=== PATIENT | female | born 1960 | race Caucasian/White ===

== ENCOUNTER 2025-05-10 12:36 | Inpatient (IN) ==
[2025-05-10 13:01] LABS: Hematocrit (blood only) 38.8 % (37.0-47.0); Hemoglobin 12.9 g/dl (12.0-16.0); Mean Corpuscular Hemoglobin 28.9 pg (25.0-34.0); Mean Corpuscular Volume 86.8 fL (80.0-100.0); Platelet Count 269 K/uL (130-400); RDW Standard Deviation 41.5 fL (36.4-46.3); Red Blood Count 4.47 M/uL (4.20-5.40); White Blood Count 14.46 K/ul (4.8-10.8)
[2025-05-10 13:18] LABS: Alanine Aminotransferase 13.0 U/L (7-52); Albumin Globulin Ratio 1.5 (0.9-2); Alkaline Phosphatase 84.0 U/L (34-104); Anion Gap 11.0 (3-11); Bilirubin,Total 0.7 mg/dl (0.2-1.0); Blood Urea Nitrogen 32.0 mg/dl (6-23); Calcium 10.5 mg/dl (8.6-10.3); Carbon Dioxide 28.0 mmol/L (21-32); Chloride 104.0 mmol/L (98-107); Creatine Kinase 333.0 U/L (26-192); Creatinine Clr Calc Pharmacy 30.4 ml/min; Globulin 3.2 gm/dl (2.5-4.0); Glucose 119.0 mg/dl (70-99(Fasting)); Magnesium 1.8 mg/dl (1.7-2.4); Potassium 3.7 mmol/L (3.5-5.1); Sodium 143.0 mmol/L (136-145); Total Protein 8.0 gm/dl (6.0-8.3)
--- NOTE | 2025-05-10 13:28 | CT Scan Report ---
Clinical History: Confusion. Technique: Axial computed tomography images were obtained of the brain from the vertex to the skull base without intravenous contrast. Findings: There is no sign of intracranial hemorrhage. There is normal fitzgerald-white matter differentiation with no sign of acute or old infarction. No midline shift or other form of herniation is identified. There is no hydrocephalus. No obvious mass lesion is seen on this noncontrast examination. The visualized portions of the orbits and paranasal sinuses appear unremarkable. The mastoid air cells appear clear Impression: Unremarkable noncontrast CT of the brain Electronically signed by Clark Cherry 05-10-2025 13:28 PM
[2025-05-10] MEDS: SODIUM CHLORIDE 0.9% 1,000 ML IV ONE ×2 (13:30→14:32)
[2025-05-10 13:32] LABS: INR 1.0 (0.9-1.1); Partial Thromboplastin Time 24 Seconds (21-31); Prothrombin Time 10.7 Seconds (9.0-12.0)
--- NOTE | 2025-05-10 13:46 | Emergency Department Note ---
Impression & Plan AMS (altered mental status), YELENA (acute kidney injury), Rhabdomyolysis, Elevated CK ED Provider Note HISTORY OF PRESENT ILLNESS: Patient is a 64-year-old female presenting with altered mental status. EMS provides history given the patient is a poor historian. They report that they were called to the patient's residence because family found her sitting in the chair this morning "with a blank look on her face and staring off into space." They state that she was being very repetitive and was covered in vomit and had an episode of incontinence. EMS reports that they were told that the patient may have fallen last night but they are unsure of the events leading up to the fall. Apparently patient's mother went to check on the patient today at around 10 AM and there was no answer. They then went over to check and the patient was found sitting on a chair. Patient is on no anticoagulation or antiplatelet therapies. Given 4 mg zofran with EMS prior to arrival. ROS: as above PHYSICAL EXAM: Constitutional: Patient appears in no acute distress. Covered in vomit. HENT: Head: Normocephalic. Patient is noted to have ecchymosis and swelling to the left periorbital region. Eyes: EOMI, PERRL Mouth/Throat: Mucous membranes moist. Neck: Trachea midline. Neck supple. Cervical collar in place. Cardiovascular: Tachycardic with regular rhythm. No murmurs, rubs or gallops. Intact distal pulses. Pulmonary/Chest: No respiratory distress. Breath sounds clear and equal bilaterally. No wheezes or rales. Abdominal: Abdomen soft, no tenderness, rebound or guarding. Musculoskeletal: No edema, tenderness or deformity noted. Skin: Warm and dry. No rash, erythema, pallor or cyanosis Neurological: Alert to self only. Only intermittently follows commands. Does move all extremities spontaneously. MDM: - Vitals signs showed hypertension and tachycardia. - History obtained via patient. History as above. - Chronic conditions affecting care: HTN; HLD; anxiety - Differential diagnoses include, but are not limited to: CVA; intracranial hemorrhage; ACS; electrolyte abnormality; pneumonia; UTI - Order placed for continuous cardiac monitoring. At this time, monitor showed rate of 86 bpm with normal sinus rhythm, per my interpretation. - External medical records reviewed. - EKG image interpreted by myself showed normal sinus rhythm. Rate tachycardic at 105 bpm. QT 328. No acute ischemic changes. Noted to have some ST depressions in the lateral leads as compared to an EKG from 02/15/2024. - Laboratory workup interpreted by myself showed leukocytosis (WBC 14.46); normal PT/INR; normal procalcitonin; normal lactic acid; stable electrolytes other than hypercalcemia (Ca 10.5); YELENA (Cr 1.72); elevated CK (333) - CT head wo contrast for acute intracranial pathology - CT cervical spine wo contrast negative for acute injury. Noted to have T1 and T3 compression fractures that are read by radiology as likely old. - UA obtained straight cath by nursing staff was negative for UTI. - CXR image reviewed by myself is negative for pneumonia, per my interpretation. - Patient given 2L NS in ER for her rhabdomyolysis. Given 1 g IV Tylenol for her reported back pain. - Unclear etiology for the patient's confusion at this time. Will admit to hospitalist service for further evaluation and management. - Discussion was had with registered nurse hh case manager about patient's case and need for admission - Hospitalist consulted for admission - Patient admitted to [facility] hospitalist service for further evaluation and management. ASSESSMENT AND PLAN: Diagnosis: Altered mental status; rhabdomyolysis; YELENA; elevated CK; leukocytosis Plan: Admit Past Med/Surg History Problem List (Updated 05/10/25 @ 15:26 by Amador Leone MD) Back pain Abdominal pain Vomiting Leukocytosis YELENA (acute kidney injury) Altered mental state Medical History Dyslipidemia Anxiety Hypertension GERD (gastroesophageal reflux disease) Surgical History S/P [id number] Social History Smoking Status: Unknown if ever smoked Preferred Language: [place] Feels Safe at Home: Yes Allergies Allergies Allergy/AdvReac Type Severity Reaction Status Date / Time bee venom protein (honey bee) AdvReac Nausea Verified 02/15/24 12:16 Home Meds Home Medications Medication Instructions Recorded Confirmed baclofen 5 mg tablet 5 mg PO DAILY PRN Pain 02/15/24 05/10/25 ergocalciferol (vitamin D2) 1,250 50,000 unit PO WK 02/15/24 05/10/25 mcg (50,000 unit) capsule famotidine 20 mg tablet 20 mg PO BID 02/15/24 05/10/25 fluticasone propionate 50 0 spray intranasal DAILY 02/15/24 05/10/25 mcg/actuation nasal spray,suspension (Flonase Allergy Relief) hydroxyzine HCl 25 mg tablet 25 mg PO HS PRN .sleep/anx 02/15/24 05/10/25 lisinopril 10 1 tab PO DAILY 02/15/24 05/10/25 mg-hydrochlorothiazide 12.5 mg tablet lovastatin 20 mg tablet 20 mg PO DAILY 02/15/24 05/10/25 multivitamin 1 tab PO DAILY 02/15/24 05/10/25 omeprazole 20 mg capsule,delayed 20 mg PO QAM 02/15/24 05/10/25 release metformin 500 mg tablet 500 mg PO BID 05/10/25 05/10/25 prazosin 1 mg capsule 1 mg PO HS 05/10/25 05/10/25 propranolol 10 mg tablet 10 mg PO DAILY 05/10/25 05/10/25 ropinirole 4 mg tablet 4 mg PO DAILY 05/10/25 05/10/25 sertraline 100 mg tablet 100 mg PO DAILY 05/10/25 05/10/25 Previous Rx's Medication Instructions Recorded ondansetron HCl 4 mg tablet 4 mg PO Q8H PRN nausea and 10/13/24 vomiting #15 tabs Results & Data (ED) Vital Signs Vital Signs - 24 hr 05/10/25 12:51 05/10/25 13:00 05/10/25 13:30 Temperature 37.0 C Temperature Source Oral Pulse Rate 106 H 108 H Pulse Rate from SpO2 Sensor Respiratory Rate 19 Respiratory Effort / Characteristics Non-Labored Respiratory Depth Normal Blood Pressure 160/105 H 166/105 H Blood Pressure Mean 123 122 Pulse Oximetry 97 Oxygen Delivery Method Room Air Sepsis Recent Fever Within 48 Hours No Sepsis New/Unexplained Change in Mental Status Yes Sepsis Action Taken by Nursing Physician Notified 05/10/25 13:33 05/10/25 13:39 05/10/25 13:40 Temperature Temperature Source Pulse Rate 106 H Pulse Rate from SpO2 Sensor 106 H Respiratory Rate 17 Respiratory Effort / Characteristics Respiratory Depth Blood Pressure Blood Pressure Mean Pulse Oximetry 97 97 98 Oxygen Delivery Method Room Air Room Air Sepsis Recent Fever Within 48 Hours Sepsis New/Unexplained Change in Mental Status Sepsis Action Taken by Nursing 05/10/25 13:41 05/10/25 13:45 05/10/25 14:00 Temperature Temperature Source Pulse Rate 106 H Pulse Rate from SpO2 Sensor 106 H Respiratory Rate 15 Respiratory Effort / Characteristics Respiratory Depth Blood Pressure 166/95 H Blood Pressure Mean 114 Pulse Oximetry 98 98 Oxygen Delivery Method Room Air Sepsis Recent Fever Within 48 Hours Sepsis New/Unexplained Change in Mental Status Sepsis Action Taken by Nursing 05/10/25 14:06 05/10/25 14:18 05/10/25 14:27 Temperature Temperature Source Pulse Rate 107 H 100 H 99 H Pulse Rate from SpO2 Sensor 103 H 101 H 98 H Respiratory Rate 20 22 Respiratory Effort / Characteristics Respiratory Depth Blood Pressure Blood Pressure Mean Pulse Oximetry 97 99 100 Oxygen Delivery Method Sepsis Recent Fever Within 48 Hours Sepsis New/Unexplained Change in Mental Status Sepsis Action Taken by Nursing 05/10/25 14:30 05/10/25 14:33 05/10/25 14:42 Temperature Temperature Source Pulse Rate 94 H 86 Pulse Rate from SpO2 Sensor 95 H 86 Respiratory Rate 17 16 Respiratory Effort / Characteristics Respiratory Depth Blood Pressure 152/99 H Blood Pressure Mean 119 Pulse Oximetry 95 99 Oxygen Delivery Method Sepsis Recent Fever Within 48 Hours Sepsis New/Unexplained Change in Mental Status Sepsis Action Taken by Nursing Laboratory Data 05/10/25 12:47 05/10/25 12:47 Lab Results 05/10/25 05/10/25 05/10/25 Range/Units 12:47 12:50 12:54 WBC 14.46 H (4.8-10.8) K/ul RBC 4.47 (4.20-5.40) M/uL Hgb 12.9 (12.0-16.0) g/dl POC Hgb 13.3 (12.0-16.0) g/dl Hct 38.8 (37.0-47.0) % POC Hct 39 (37-47) % MCV 86.8 (80.0-100.0) fL MCH 28.9 (25.0-34.0) pg MCHC 33.2 (32.0-36.0) g/dL RDW Std Deviation 41.5 (36.4-46.3) fL RDW Coeff of Chantal 13.3 (11.5-14.5) % Plt Count 269 (130-400) K/uL MPV 12.4 (9.4-12.4) fL PT 10.7 (9.0-12.0) Seconds INR 1.0 (0.9-1.1) APTT 24 (21-31) Seconds PTT Ratio 0.9 POC Sodium 143 (135-144) mmol/L Sodium 143 (136-145) mmol/L POC Potassium 3.7 (3.3-5.0) mmol/L Potassium 3.7 (3.5-5.1) mmol/L POC Chloride 105 (101-112) mmol/L Chloride 104 (98-107) mmol/L Carbon Dioxide 28 (21-32) mmol/L POC Total CO2 24 (24-31) mmol/L Anion Gap 11 (3-11) POC Anion Gap 18.0 (16-25) mmol/L POC BUN 31 H (7-18) mg/dl BUN 32 H (6-23) mg/dl Creatinine 1.72 H (0.6-1.2) mg/dl POC Creatinine 1.9 H (0.6-1.3) mg/dl Est Cr Clr Drug Dosing 30.4 ml/min eGFR 33.23 BUN/Creatinine Ratio 18.6 (10-20) Glucose 119 H (70-99(Fasting)) mg/dl POC Glucose (other) 119 H (70-99) mg/dl Lactate 1.6 (0.4-2.0) mmol/L Calcium 10.5 H (8.6-10.3) mg/dl POC Ioniz Calcium Jose 1.25 (1.12-1.32) mmol/l Magnesium 1.8 (1.7-2.4) mg/dl Total Bilirubin 0.7 (0.2-1.0) mg/dl AST 26 (13-39) U/L ALT 13 (7-52) U/L Alkaline Phosphatase 84 (34-104) U/L Total Creatine Kinase 333 H (26-192) U/L Total Protein 8.0 (6.0-8.3) gm/dl Albumin 4.8 (3.4-5.0) gm/dl Globulin 3.2 (2.5-4.0) gm/dl Albumin/Globulin Ratio 1.5 (0.9-2) Procalcitonin (0-0.5) ng/ml Urine Color Urine Appearance (Clear) Urine pH (4.5-7.5) Ur Specific Draper (1.000-1.030) Urine Protein (Negative) Urine Glucose (UA) (Negative) Urine Ketones (Negative) Urine Blood (Negative) Urine Nitrite (Negative) Urine Bilirubin (Negative) Urine Urobilinogen (Negative) Ur Leukocyte Esterase (Negative) Urine WBC (Auto) (0-5) /hpf Urine RBC (Auto) (0-2) /hpf U Hyaline Cast (Auto) (0-2) /lpf U Epithel Cells (Auto) (0-2) /hpf Urine Bacteria (Auto) (None Seen) Hyaline Casts (None Presnt) /lpf Granular Casts (None Prsent) /lpf Urine Comment 05/10/25 05/10/25 Range/Units 12:56 13:28 WBC (4.8-10.8) K/ul RBC (4.20-5.40) M/uL Hgb (12.0-16.0) g/dl POC Hgb (12.0-16.0) g/dl Hct (37.0-47.0) % POC Hct (37-47) % MCV (80.0-100.0) fL MCH (25.0-34.0) pg MCHC (32.0-36.0) g/dL RDW Std Deviation (36.4-46.3) fL RDW Coeff of Chantal (11.5-14.5) % Plt Count (130-400) K/uL MPV (9.4-12.4) fL PT (9.0-12.0) Seconds INR (0.9-1.1) APTT (21-31) Seconds PTT Ratio POC Sodium (135-144) mmol/L Sodium (136-145) mmol/L POC Potassium (3.3-5.0) mmol/L Potassium (3.5-5.1) mmol/L POC Chloride (101-112) mmol/L Chloride (98-107) mmol/L Carbon Dioxide (21-32) mmol/L POC Total CO2 (24-31) mmol/L Anion Gap (3-11) POC Anion Gap (16-25) mmol/L POC BUN (7-18) mg/dl BUN (6-23) mg/dl Creatinine (0.6-1.2) mg/dl POC Creatinine (0.6-1.3) mg/dl Est Cr Clr Drug Dosing ml/min eGFR BUN/Creatinine Ratio (10-20) Glucose (70-99(Fasting)) mg/dl POC Glucose (other) (70-99) mg/dl Lactate (0.4-2.0) mmol/L Calcium (8.6-10.3) mg/dl POC Ioniz Calcium Jose (1.12-1.32) mmol/l Magnesium (1.7-2.4) mg/dl Total Bilirubin (0.2-1.0) mg/dl AST (13-39) U/L ALT (7-52) U/L Alkaline Phosphatase (34-104) U/L Total Creatine Kinase (26-192) U/L Total Protein (6.0-8.3) gm/dl Albumin (3.4-5.0) gm/dl Globulin (2.5-4.0) gm/dl Albumin/Globulin Ratio (0.9-2) Procalcitonin < 0.02 (0-0.5) ng/ml Urine Color Yellow Urine Appearance Clear (Clear) Urine pH 5.5 (4.5-7.5) Ur Specific Draper 1.019 (1.000-1.030) Urine Protein 1+ H (Negative) Urine Glucose (UA) Negative (Negative) Urine Ketones 1+ H (Negative) Urine Blood 1+ H (Negative) Urine Nitrite Negative (Negative) Urine Bilirubin Negative (Negative) Urine Urobilinogen Negative (Negative) Ur Leukocyte Esterase Negative (Negative) Urine WBC (Auto) 0-5 (0-5) /hpf Urine RBC (Auto) 0-2 (0-2) /hpf U Hyaline Cast (Auto) >20 H (0-2) /lpf U Epithel Cells (Auto) 6-10 H (0-2) /hpf Urine Bacteria (Auto) None Seen (None Seen) Hyaline Casts Present A (None Presnt) /lpf Granular Casts Present A (None Prsent) /lpf Urine Comment Administered Medications Discontinued Medications Sodium Chloride (Nss) 1,000 mls @ 999 mls/hr IV .Q1H1M ONE Stop: 05/10/25 13:58 Last Admin: 05/10/25 13:30 Dose: 999 mls/hr Documented By: ISAMARK Sodium Chloride (Nss) 1,000 mls @ 999 mls/hr IV .Q1H1M ONE Stop: 05/10/25 14:34 Last Admin: 05/10/25 14:32 Dose: 999 mls/hr Documented By: ISAMARK Acetaminophen (Ofirmev) 1,000 mg in 100 mls @ 400 mls/hr IV NOW STA Stop: 05/10/25 14:06 Last Infusion: 05/10/25 14:32 Dose: Infused Documented By: Admin: 05/10/25 13:55 Dose: 400 mls/hr Documented By: ISAMARK Imaging Data Radiologist's Impression: Cervical Spine CT 05/10/25 12:43 Clinical history: Confusion Technique: Axial computed tomography images were obtained of the cervical spine without intravenous contrast. Sagittal and coronal reconstructions were obtained Findings: No definite cervical spine fracture is identified. There is a mild T1 compression fracture, likely old. There is also a mild T3 compression fracture. No listhesis is seen. No focal osseous lesion is evident. The atlantoaxial articulation appears unremarkable. At C2-3, there is a mild disc bulge. There is no spinal stenosis. The neural foramen are patent At C3-4, no disc herniation is identified. There is no spinal stenosis. The neural foramen are patent At C4-5, no disc herniation is identified. There is no spinal stenosis. The neural foramen are patent At C5-6, there is a disc bulge without spinal stenosis. The neural foramen are patent At C6-7, there is a mild disc bulge. There is no spinal stenosis. The neural foramen are patent At C7-T1,no disc herniation is identified. There is no spinal stenosis. The neural foramen are patent The lung apices appear clear. The visualized soft tissues of the neck appear unremarkable. No foreign body is seen Impression: 1. No definite cervical spine fracture 2. Mild T1 and T3 compression fractures, likely old but of indeterminate age Electronically signed by Clark Cherry 05-10-2025 2:15 PM Chest X-Ray 05/10/25 12:43 Technique: A frontal view of the chest was obtained Comparison is made to the prior examination dated 10/13/2024 Findings: There are no confluent pulmonary infiltrates. The heart size is within normal limits. No pleural effusion or pneumothorax is seen. There is no definite pulmonary nodule. No fracture is noted. No foreign body is seen Impression: No active disease Electronically signed by Clark Cherry 05-10-2025 13:[address] 05/10/25 12:43 Clinical History: Confusion. Technique: Axial computed tomography images were obtained of the brain from the vertex to the skull base without intravenous contrast. Findings: There is no sign of intracranial hemorrhage. There is normal fitzgerald-white matter differentiation with no sign of acute or old infarction. No midline shift or other form of herniation is identified. There is no hydrocephalus. No obvious mass lesion is seen on this noncontrast examination. The visualized portions of the orbits and paranasal sinuses appear unremarkable. The mastoid air cells appear clear Impression: Unremarkable noncontrast CT of the brain Electronically signed by Clark Cherry 05-10-2025 13:[address] 05/10/25 14:54 Clinical history: Trauma Technique: Axial computed tomography images were obtained of the facial bones without intravenous contrast. Sagittal and coronal reconstructions were obtained Findings: No fracture is identified. No focal osseous lesion is noted. There is mild mucosal thickening throughout the paranasal sinuses. No air-fluid level is seen The orbits appear unremarkable. No foreign body is seen. The nasal septum appears midline. There is lashanda bullosa of the middle nasal turbinates bilaterally. No definite nasal polyp is noted Impression: 1. No definite facial bone fracture 2. Chronic sinusitis Electronically signed by Clark Cherry 05-10-2025 3:42 PM Abdomen/Pelvis CT 05/10/25 15:20 Clinical History: Abdominal pain Technique: Axial computed tomography images were obtained of the abdomen and pelvis without intravenous contrast. Comparison is made to the prior CT dated 10/13/2024 Findings: The liver is overall of normal size, attenuation, and contour with no sign of cirrhosis or significant fatty infiltration. No definite liver mass lesion is seen on this noncontrast study. The gallbladder appears unremarkable. No bile duct dilatation is noted. The spleen is of normal size. No focal splenic lesion is evident. The pancreas appears normal with no sign of acute or chronic pancreatitis and no mass lesion noted. The pancreatic duct is of normal caliber. The adrenal glands appear unremarkable. No renal or proximal ureteral calculi are seen. There is no hydronephrosis or perinephric stranding. No definite renal mass lesion is identified. The aorta is of normal caliber. No abdominal adenopathy is seen. There is a moderate sized hiatal hernia, increased in size. There is no sign of small bowel obstruction. The colon appears unremarkable. The appendix appears normal also. No free intraperitoneal fluid or air is identified. No distal ureteral or bladder calculi are seen. No obvious bladder mass lesion is evident. The iliac arteries are of normal caliber. No pelvic adenopathy is noted. There are small bilateral inguinal hernias containing only fat. The uterus has been removed The lungs bases appear clear. Mild thoracolumbar degenerative disc disease is seen. There is an unchanged L2 compression fracture. No focal osseous lesion is seen Impression: 1. Moderate sized hiatal hernia, increased in size 2. Small bilateral inguinal hernias containing only fat 3. Unchanged L2 compression fracture Electronically signed by Clark Cherry 05-10-2025 3:45 PM Discharge Plan Visit Data Chief Complaint: Confusion Stated Complaint: TRAUMA ALERT, FALL, AMS ED Provider: Devi Mcgregor Discharge Problem: AMS (altered mental status), YELENA (acute kidney injury), Rhabdomyolysis, Elevated CK Condition: Fair Forms Stand Alone Forms: My [facility] [employer] Prescriptions Prescriptions: No Action ondansetron HCl 4 mg tablet 4 mg PO Q8H PRN (Reason: nausea and vomiting) Qty: 15 0RF Patient Comments: last filled 09/30/24 8 day supply #30 metformin 500 mg tablet 500 mg PO BID prazosin 1 mg capsule 1 mg PO HS sertraline 100 mg tablet 100 mg PO DAILY propranolol 10 mg tablet 10 mg PO DAILY ropinirole 4 mg tablet 4 mg PO DAILY multivitamin Tablet 1 tab PO DAILY famotidine 20 mg tablet 20 mg PO BID omeprazole 20 mg capsule,delayed release(DR/EC) 20 mg PO QAM hydroxyzine HCl 25 mg tablet 25 mg PO HS PRN (Reason: .sleep/anx) ergocalciferol (vitamin D2) 1,250 mcg (50,000 unit) capsule 50,000 unit PO WK lisinopril-hydrochlorothiazide 10-12.5 mg tablet 1 tab PO DAILY lovastatin 20 mg tablet 20 mg PO DAILY fluticasone propionate [Flonase Allergy Relief] 50 mcg/actuation [place],Suspension 0 spray INTRANASAL DAILY Patient Comments: 05/10- otc/no fill history unable to verify Rx Instructions: administer into each nostril baclofen 5 mg tablet 5 mg PO DAILY PRN (Reason: Pain) Patient Comments: filled 04/21 15 day supply #45 Referrals Referrals: Cheyanne Yun CRNP [Primary Care Provider] -
--- NOTE | 2025-05-10 13:49 | XRay Report ---
Technique: A frontal view of the chest was obtained Comparison is made to the prior examination dated 10/13/2024 Findings: There are no confluent pulmonary infiltrates. The heart size is within normal limits. No pleural effusion or pneumothorax is seen. There is no definite pulmonary nodule. No fracture is noted. No foreign body is seen Impression: No active disease Electronically signed by Clark Cherry 05-10-2025 13:48 PM
[2025-05-10] MEDS: ACETAMINOPHEN 1,000 MG/100 ML VIAL IV STA (13:55)
[2025-05-10 13:57] LABS: Appearance Urine Clear (Clear); Bacteria Urine Automated None Seen (None Seen); Cast Urine Automated >20 /lpf (0-2); Glucose Urine UA Negative (Negative); RBC Urine Automated 0-2 /hpf (0-2); WBC Urine Automated 0-5 /hpf (0-5)
--- NOTE | 2025-05-10 13:59 | Electrocardiogram Report ---
Test Reason : Blood Pressure : */* mmHG Vent. Rate : 105 BPM Atrial Rate : 105 BPM P-R Int : 178 ms QRS Dur : 82 ms QT Int : 328 ms P-R-T Axes : -20 -6 -21 degrees QTcB Int : 433 ms Sinus tachycardia Inferior-posterior infarct , age undetermined Abnormal ECG When compared with ECG of 15-Feb-2024 12:43, Vent. rate has increased by [address] now depressed in Anterolateral leads T wave inversion now evident in Lateral leads Confirmed by Alejandro Saavedra ([id number]) on 05/10/2025 1:59:22 PM Referred By: REFERRED SELF Confirmed By: Alejandro Saavedra
--- NOTE | 2025-05-10 14:16 | CT Scan Report ---
Clinical history: Confusion Technique: Axial computed tomography images were obtained of the cervical spine without intravenous contrast. Sagittal and coronal reconstructions were obtained Findings: No definite cervical spine fracture is identified. There is a mild T1 compression fracture, likely old. There is also a mild T3 compression fracture. No listhesis is seen. No focal osseous lesion is evident. The atlantoaxial articulation appears unremarkable. At C2-3, there is a mild disc bulge. There is no spinal stenosis. The neural foramen are patent At C3-4, no disc herniation is identified. There is no spinal stenosis. The neural foramen are patent At C4-5, no disc herniation is identified. There is no spinal stenosis. The neural foramen are patent At C5-6, there is a disc bulge without spinal stenosis. The neural foramen are patent At C6-7, there is a mild disc bulge. There is no spinal stenosis. The neural foramen are patent At C7-T1,no disc herniation is identified. There is no spinal stenosis. The neural foramen are patent The lung apices appear clear. The visualized soft tissues of the neck appear unremarkable. No foreign body is seen Impression: 1. No definite cervical spine fracture 2. Mild T1 and T3 compression fractures, likely old but of indeterminate age Electronically signed by Clark Cherry 05-10-2025 2:15 PM
--- NOTE | 2025-05-10 15:24 | History & Physical Report ---
Date of Service May 10, 2025 Assessment & Plan (1) Altered mental state: (2) YELENA (acute kidney injury): (3) Leukocytosis: (4) Vomiting: (5) Abdominal pain: (6) Back pain: Plan: Pt presents with altered mental status, found by family looking off and with signs of prior vomiting. Pt reports abdominal pain, in central area, abdomen soft on phys. exam Denies diarrhea but not answering all my questions easily Denies headache or neck pain denies any cough, fever, runny nose Able to answer some questions, but very slowly Able to move extremities Does not recall any medication changes Was treated with Bactrim 04/03 to 04/10 for UTI (prescribed by urgent care) - per outpt chart review Pt reports her symptoms overall improved after abx - presented with abd. pain at that time CT head/ neck in ED - negative for acute changes UA negative CXR negative Will obtain UDS stat CT abdomen/pelvis MR brain w/o contrast EEG blood cultx facial CT (bruise over left eyelid) Pt did not get CTA head and neck in ED d/t YELENA (to avoid contrast related kidney injury) Will obtain echo, A1c, fasting lipid - stroke work-up, neuro-checks Hold baclofen, hydroxyzine - until mental status improved Hold ropinirol Give thiamine Will obtain neuro consult Will cont. to closely monitor, admit to PCU YELENA - Cr 1.7 in ED -received IVF in ED Hold lisinopril-HCTZ - due to YELENA, monitor BMP - will check renal function this PM and tmrw AM - also avoid NSAIDs for pt's back pain Back pain - per family, is chronic - several months - family reports she had XR done in PCP's office - will follow CT abd/pelvis, may further eval / image spine - give tylenol, lidocaine patch - avoid NSAIDs for now until Cr improved/ normalized - hold opioids, muscle relaxer until mental status improved Hx of GERD - cont. famotidine Hx of depression/anxiety, restless leg syndrome - for now hold sertraline, hold ropirinol (as above) -resume when able/ mental status improved History of Present Illness Chief Complaint: AMS Primary Care Provider: Cheyanne Yun 64 F with hx of dyslipidemia, restless leg syndrome, poss. dementia (questionable), depression/ anxiety, who presents d/t altered mental status. Pt found by family today, looking off, and found she vomited. She was not answering appropriately and was brought to ER. In ER pt is awake but answers slowly and not able to fully answer questions. Only has simple responses. She does follow commands, such as she moves her legs when asked, she moves her arms, she moves her head left, right, down, up without any problem. Reports she has been feeling sick since yesterday. Father is present in the ER room and thinks she has been looking sick for past 3-4 days. No fevers, cough, rhinorrhea though. He reports she usually walks by herself, has a limp. Not eating well, just snacking. Patient lives with her father and his (step mother). Father says he and his left the house in the morning, then they called her and nobody was answering so granddaughter went to check on the pt. Update: I was later able to discuss with pt's stepmother and granddaughter. Per their report pt was at her usual state of health yesterday - she was doing laundry. After that pt was complaining of back ache and took muscle relaxers. After that she looked off and sick last evening. Today, late morning found by granddaughter, not answering appropriately and found vomit all over pt's clothes -> pt was taken to ER. Per chart review - pt seen at [facility] neurology office in January 2025 for "memory issues" - at that time it was not felt she had dementia and donepezil was stopped. She is supposed to follow up in 3 months - around 05/13/2025, pt has an appointment scheduled for 07/07/2025. Fam. hx - mother - "memory issues", father - HTN, brother - DM, HTN Allergies Allergy/AdvReac Type Severity Reaction Status Date / Time bee venom protein (honey bee) AdvReac Nausea Verified 02/15/24 12:16 Home Medications Medication Instructions Recorded Confirmed Type baclofen 5 mg tablet 5 mg PO DAILY PRN Pain 02/15/24 05/10/25 History ergocalciferol (vitamin D2) 1,250 50,000 unit PO WK 02/15/24 05/10/25 History mcg (50,000 unit) capsule famotidine 20 mg tablet 20 mg PO BID 02/15/24 05/10/25 History fluticasone propionate 50 0 spray intranasal DAILY 02/15/24 05/10/25 History mcg/actuation nasal spray,suspension (Flonase Allergy Relief) hydroxyzine HCl 25 mg tablet 25 mg PO HS PRN .sleep/anx 02/15/24 05/10/25 History lisinopril 10 1 tab PO DAILY 02/15/24 05/10/25 History mg-hydrochlorothiazide 12.5 mg tablet lovastatin 20 mg tablet 20 mg PO DAILY 02/15/24 05/10/25 History multivitamin 1 tab PO DAILY 02/15/24 05/10/25 History omeprazole 20 mg capsule,delayed 20 mg PO QAM 02/15/24 05/10/25 History release ondansetron HCl 4 mg tablet 4 mg PO Q8H PRN nausea and 10/13/24 05/10/25 Rx vomiting #15 tabs metformin 500 mg tablet 500 mg PO BID 05/10/25 05/10/25 History prazosin 1 mg capsule 1 mg PO HS 05/10/25 05/10/25 History propranolol 10 mg tablet 10 mg PO DAILY 05/10/25 05/10/25 History ropinirole 4 mg tablet 4 mg PO DAILY 05/10/25 05/10/25 History sertraline 100 mg tablet 100 mg PO DAILY 05/10/25 05/10/25 History Past Med/Surg History Problem List Back pain Abdominal pain Vomiting Leukocytosis YELENA (acute kidney injury) Altered mental state Medical History Dyslipidemia Anxiety Hypertension GERD (gastroesophageal reflux disease) Surgical History S/P [id number] Social History Smoking Status: Unknown if ever smoked Preferred Language: Serbian Feels Safe at Home: Yes Review of Systems Review of Systems: All systems reviewed & are unremarkable except as noted in HPI & below (however pt not answering in detail) Physical Exam Constitutional: WD/WN, vitals as above Eyes: PERRL, conjunctivae normal, anicteric sclerae ENMT: external ear and nose normal, oropharynx normal (poor dentition) Neck: normal visual inspection (moves neck without difficulty) Respiratory: normal respiratory effort, lungs clear to auscultation Cardiovascular: RRR, no murmur, no edema Chest (Breasts): Chest: normal inspection of chest Gastrointestinal (Abdomen): normal bowel sounds, soft, nontender, no hepatosplenomegaly soft, +some epigastric discomfort reported (vomited prior to coming to ER) Musculoskeletal: moves all extremities Skin: no rashes, warm and dry Neurologic: awake, slow to answer, does not answer in much detail, moves extremities, follows commands Results & Data Results & Data Vital Signs (Past 12 Hours) Vital Signs Temp Pulse Resp BP Pulse Ox O2 Del Method 05/10/25 14:42 86 16 99 05/10/25 14:33 94 H 17 95 05/10/25 14:30 152/99 H 05/10/25 14:27 99 H 100 05/10/25 14:18 100 H 22 99 05/10/25 14:06 107 H 20 97 05/10/25 14:00 166/95 H 05/10/25 13:45 106 H 15 98 05/10/25 13:41 98 Room Air 05/10/25 13:40 98 Room Air 05/10/25 13:39 97 Room Air 05/10/25 13:33 106 H 17 97 05/10/25 13:30 166/105 H 05/10/25 13:00 108 H 05/10/25 12:51 37.0 C 106 H 19 160/105 H 97 Room Air Laboratory Results 05/10/25 05/10/25 05/10/25 Range/Units 13:28 12:56 12:54 WBC (4.8-10.8) K/ul RBC (4.20-5.40) M/uL Hgb (12.0-16.0) g/dl POC Hgb (12.0-16.0) g/dl Hct (37.0-47.0) % POC Hct (37-47) % MCV (80.0-100.0) fL MCH (25.0-34.0) pg MCHC (32.0-36.0) g/dL RDW Std Deviation (36.4-46.3) fL RDW Coeff of Chantal (11.5-14.5) % Plt Count (130-400) K/uL MPV (9.4-12.4) fL PT (9.0-12.0) Seconds INR (0.9-1.1) APTT (21-31) Seconds PTT Ratio POC Sodium (135-144) mmol/L Sodium (136-145) mmol/L POC Potassium (3.3-5.0) mmol/L Potassium (3.5-5.1) mmol/L POC Chloride (101-112) mmol/L Chloride (98-107) mmol/L Carbon Dioxide (21-32) mmol/L POC Total CO2 (24-31) mmol/L Anion Gap (3-11) POC Anion Gap (16-25) mmol/L POC BUN (7-18) mg/dl BUN (6-23) mg/dl Creatinine (0.6-1.2) mg/dl POC Creatinine (0.6-1.3) mg/dl Est Cr Clr Drug Dosing ml/min eGFR BUN/Creatinine Ratio (10-20) Glucose (70-99(Fasting)) mg/dl POC Glucose (other) (70-99) mg/dl Lactate 1.6 (0.4-2.0) mmol/L Calcium (8.6-10.3) mg/dl POC Ioniz Calcium Jose (1.12-1.32) mmol/l Magnesium (1.7-2.4) mg/dl Total Bilirubin (0.2-1.0) mg/dl AST (13-39) U/L ALT (7-52) U/L Alkaline Phosphatase (34-104) U/L Total Creatine Kinase (26-192) U/L Total Protein (6.0-8.3) gm/dl Albumin (3.4-5.0) gm/dl Globulin (2.5-4.0) gm/dl Albumin/Globulin Ratio (0.9-2) Procalcitonin < 0.02 (0-0.5) ng/ml Urine Color Yellow Urine Appearance Clear (Clear) Urine pH 5.5 (4.5-7.5) Ur Specific [place] 1.019 (1.000-1.030) Urine Protein 1+ H (Negative) Urine Glucose (UA) Negative (Negative) Urine Ketones 1+ H (Negative) Urine Blood 1+ H (Negative) Urine Nitrite Negative (Negative) Urine Bilirubin Negative (Negative) Urine Urobilinogen Negative (Negative) Ur Leukocyte Esterase Negative (Negative) Urine WBC (Auto) 0-5 (0-5) /hpf Urine RBC (Auto) 0-2 (0-2) /hpf U Hyaline Cast (Auto) >20 H (0-2) /lpf U Epithel Cells (Auto) 6-10 H (0-2) /hpf Urine Bacteria (Auto) None Seen (None Seen) Hyaline Casts Present A (None Presnt) /lpf Granular Casts Present A (None Prsent) /lpf Urine Comment 05/10/25 05/10/25 Range/Units 12:50 12:47 WBC 14.46 H (4.8-10.8) K/ul RBC 4.47 (4.20-5.40) M/uL Hgb 12.9 (12.0-16.0) g/dl POC Hgb 13.3 (12.0-16.0) g/dl Hct 38.8 (37.0-47.0) % POC Hct 39 (37-47) % MCV 86.8 (80.0-100.0) fL MCH 28.9 (25.0-34.0) pg MCHC 33.2 (32.0-36.0) g/dL RDW Std Deviation 41.5 (36.4-46.3) fL RDW Coeff of Chantal 13.3 (11.5-14.5) % Plt Count 269 (130-400) K/uL MPV 12.4 (9.4-12.4) fL PT 10.7 (9.0-12.0) Seconds INR 1.0 (0.9-1.1) APTT 24 (21-31) Seconds PTT Ratio 0.9 POC Sodium 143 (135-144) mmol/L Sodium 143 (136-145) mmol/L POC Potassium 3.7 (3.3-5.0) mmol/L Potassium 3.7 (3.5-5.1) mmol/L POC Chloride 105 (101-112) mmol/L Chloride 104 (98-107) mmol/L Carbon Dioxide 28 (21-32) mmol/L POC Total CO2 24 (24-31) mmol/L Anion Gap 11 (3-11) POC Anion Gap 18.0 (16-25) mmol/L POC BUN 31 H (7-18) mg/dl BUN 32 H (6-23) mg/dl Creatinine 1.72 H (0.6-1.2) mg/dl POC Creatinine 1.9 H (0.6-1.3) mg/dl Est Cr Clr Drug Dosing 30.4 ml/min eGFR 33.23 BUN/Creatinine Ratio 18.6 (10-20) Glucose 119 H (70-99(Fasting)) mg/dl POC Glucose (other) 119 H (70-99) mg/dl Lactate (0.4-2.0) mmol/L Calcium 10.5 H (8.6-10.3) mg/dl POC Ioniz Calcium Jose 1.25 (1.12-1.32) mmol/l Magnesium 1.8 (1.7-2.4) mg/dl Total Bilirubin 0.7 (0.2-1.0) mg/dl AST 26 (13-39) U/L ALT 13 (7-52) U/L Alkaline Phosphatase 84 (34-104) U/L Total Creatine Kinase 333 H (26-192) U/L Total Protein 8.0 (6.0-8.3) gm/dl Albumin 4.8 (3.4-5.0) gm/dl Globulin 3.2 (2.5-4.0) gm/dl Albumin/Globulin Ratio 1.5 (0.9-2) Procalcitonin (0-0.5) ng/ml Urine Color Urine Appearance (Clear) Urine pH (4.5-7.5) Ur Specific [place] (1.000-1.030) Urine Protein (Negative) Urine Glucose (UA) (Negative) Urine Ketones (Negative) Urine Blood (Negative) Urine Nitrite (Negative) Urine Bilirubin (Negative) Urine Urobilinogen (Negative) Ur Leukocyte Esterase (Negative) Urine WBC (Auto) (0-5) /hpf Urine RBC (Auto) (0-2) /hpf U Hyaline Cast (Auto) (0-2) /lpf U Epithel Cells (Auto) (0-2) /hpf Urine Bacteria (Auto) (None Seen) Hyaline Casts (None Presnt) /lpf Granular Casts (None Prsent) /lpf Urine Comment Diagnostic Findings CT head Findings: There is no sign of intracranial hemorrhage. There is normal fitzgerald-white matter differentiation with no sign of acute or old infarction. No midline shift or other form of herniation is identified. There is no hydrocephalus. No obvious mass lesion is seen on this noncontrast examination. The visualized portions of the orbits and paranasal sinuses appear unremarkable. The mastoid air cells appear clear Impression: Unremarkable noncontrast CT of the brain CT neck Impression: 1. No definite cervical spine fracture 2. Mild T1 and T3 compression fractures, likely old but of indeterminate age CXR Findings: There are no confluent pulmonary infiltrates. The heart size is within normal limits. No pleural effusion or pneumothorax is seen. There is no definite pulmonary nodule. No fracture is noted. No foreign body is seen Impression: No active disease
--- NOTE | 2025-05-10 15:42 | CT Scan Report ---
Clinical history: Trauma Technique: Axial computed tomography images were obtained of the facial bones without intravenous contrast. Sagittal and coronal reconstructions were obtained Findings: No fracture is identified. No focal osseous lesion is noted. There is mild mucosal thickening throughout the paranasal sinuses. No air-fluid level is seen The orbits appear unremarkable. No foreign body is seen. The nasal septum appears midline. There is lashanda bullosa of the middle nasal turbinates bilaterally. No definite nasal polyp is noted Impression: 1. No definite facial bone fracture 2. Chronic sinusitis Electronically signed by Clark Cherry 05-10-2025 3:42 PM
--- NOTE | 2025-05-10 15:45 | CT Scan Report ---
Clinical History: Abdominal pain Technique: Axial computed tomography images were obtained of the abdomen and pelvis without intravenous contrast. Comparison is made to the prior CT dated 10/13/2024 Findings: The liver is overall of normal size, attenuation, and contour with no sign of cirrhosis or significant fatty infiltration. No definite liver mass lesion is seen on this noncontrast study. The gallbladder appears unremarkable. No bile duct dilatation is noted. The spleen is of normal size. No focal splenic lesion is evident. The pancreas appears normal with no sign of acute or chronic pancreatitis and no mass lesion noted. The pancreatic duct is of normal caliber. The adrenal glands appear unremarkable. No renal or proximal ureteral calculi are seen. There is no hydronephrosis or perinephric stranding. No definite renal mass lesion is identified. The aorta is of normal caliber. No abdominal adenopathy is seen. There is a moderate sized hiatal hernia, increased in size. There is no sign of small bowel obstruction. The colon appears unremarkable. The appendix appears normal also. No free intraperitoneal fluid or air is identified. No distal ureteral or bladder calculi are seen. No obvious bladder mass lesion is evident. The iliac arteries are of normal caliber. No pelvic adenopathy is noted. There are small bilateral inguinal hernias containing only fat. The uterus has been removed The lungs bases appear clear. Mild thoracolumbar degenerative disc disease is seen. There is an unchanged L2 compression fracture. No focal osseous lesion is seen Impression: 1. Moderate sized hiatal hernia, increased in size 2. Small bilateral inguinal hernias containing only fat 3. Unchanged L2 compression fracture Electronically signed by Clark Cherry 05-10-2025 3:45 PM
[2025-05-10 16:40] LABS: Lipase 20.0 U/L (11-82)
[2025-05-10] MEDS: MAGNESIUM SULFATE / D5W 1 GM/100 ML BAG IV ONE (17:00)
[2025-05-10] MEDS: LIDOCAINE 5% 1 PATCH TD STA (17:01)
[2025-05-10] MEDS: THIAMINE HCL 200 MG in SODIUM CHLORIDE 0.9% 50 ML IV STA (17:01)
--- NOTE | 2025-05-10 17:44 | Magnetic Resonance Report ---
Exam: MRI brain without contrast. Reason for exam: Altered mental status. Previous studies: CT head unenhanced 05/10/2025 FINDINGS: No evidence of mass or enlargement of the pituitary. Diffusion weighted images do not show any evidence of acute restricted diffusion to indicate ischemia at this time. No mass effect, hemorrhage or edema is seen. Ventricular size is normal without midline shift or extra-axial blood/fluid collection. The mastoids show no significant abnormal signal. Mild diffuse mucosal thickening seen in the visualized paranasal sinuses. Intraorbital contents are grossly intact. IMPRESSION: 1. Negative for acute intracranial process. No acute ischemia, mass or hemorrhage. 2. Mild diffuse mucosal thickening in the paranasal sinuses. Electronically signed by Osiel Soriano 05-10-2025 5:44 PM
[2025-05-10 18:12] LABS: Anion Gap 7.0 (3-11); Blood Urea Nitrogen 30.0 mg/dl (6-23); Calcium 8.9 mg/dl (8.6-10.3); Carbon Dioxide 26.0 mmol/L (21-32); Chloride 109.0 mmol/L (98-107); Creatinine Clr Calc Pharmacy 35.8 ml/min; Glucose 116.0 mg/dl (70-99(Fasting)); Magnesium 1.9 mg/dl (1.7-2.4); Potassium 3.4 mmol/L (3.5-5.1); Sodium 142.0 mmol/L (136-145)
[2025-05-10 19:11] LABS: Amphetamines+Metham, Urine Neg (Neg); MDMA (Ecstacy), Urine Neg (Neg); Marijuana, Urine Neg (Neg)
[2025-05-10] MEDS: FAMOTIDINE 20MG IV PUSH 20 MG/5 ML SYR IV SCH (20:48)
[2025-05-10] MEDS: POTASSIUM CHLORIDE / WTR 10 MEQ/100 ML PLCT IV SCH (20:48)
[2025-05-10] MEDS: SODIUM CHLORIDE 0.9% 500 ML IV ONE (20:48)
[2025-05-10] MEDS: REMOVE LIDODERM PATCH SCH (20:49)
[2025-05-10] MEDS: ACETAMINOPHEN 1,000 MG/100 ML VIAL IV PRN (23:16)
[2025-05-11 06:06] LABS: Hematocrit (blood only) 35.8 % (37.0-47.0); Hemoglobin 11.8 g/dl (12.0-16.0); Immature Granulocytes # (auto) 0.05 K/uL (0.01-0.20); Immature Granulocytes % (auto) 0.5 %; Mean Corpuscular Hemoglobin 29.4 pg (25.0-34.0); Mean Corpuscular Volume 89.1 fL (80.0-100.0); Platelet Count 235 K/uL (130-400); RDW Standard Deviation 44.1 fL (36.4-46.3); Red Blood Count 4.02 M/uL (4.20-5.40); White Blood Count 9.16 K/ul (4.8-10.8)
[2025-05-11 06:33] LABS: Anion Gap 9.0 (3-11); Blood Urea Nitrogen 18.0 mg/dl (6-23); Calcium 9.1 mg/dl (8.6-10.3); Carbon Dioxide 23.0 mmol/L (21-32); Chloride 106.0 mmol/L (98-107); Cholesterol 219.0 mg/dl (0-200); Creatinine Clr Calc Pharmacy 59.2 ml/min; Glucose 110.0 mg/dl (70-99(Fasting)); HDL Cholesterol 65.0 mg/dl; Magnesium 1.8 mg/dl (1.7-2.4); Potassium 3.5 mmol/L (3.5-5.1); Sodium 138.0 mmol/L (136-145); Triglycerides 106.0 mg/dl (0-150)
[2025-05-11 07:36] LABS: Hemoglobin A1C 5.8 % (4.5-5.6)
--- NOTE | 2025-05-11 11:43 | Hospitalist Progress Note ---
Date of Service May 11, 2025 Assessment & Plan (1) Altered mental state: Plan: Presented with altered mental status No definite cause found so far except noted to be dehydrated CT of the head and MRI of the head remain unremarkable Hold baclofen, hydroxyzine - until mental status improved Hold ropinirol Seems to be at his baseline and does not have any acute confusion during examination Remains slow in her responses which could be her baseline with depres mark/anxiety Advised to drink more fluid Will monitor (2) YELENA (acute kidney injury): Plan: Noted to have YELENA with BUN of 30 and creatinine 1.6 Likely secondary to not been eating and drinking for the last day or 2 with nausea and vomitingcould be secondary to gastroenteritis Received IV fluid and advised to drink more fluid YELENA is resolved (3) Leukocytosis: Plan: Noted to have minimally increased white cell count of 14,000- likely secondary to a stress No evidence of infection and the white count reverted to normal (4) Vomiting: (5) Abdominal pain: (6) Back pain: Plan: Back pain - per family, is chronic - several months - family reports she had XR done in PCP's office CT of the abdomen and pelvis showed unchanged L2 compression fracture CT of the face did not show any fracture CT of the cervical spine showed mild T1 and T3 compression fracture Patient does not have any significant pain during my examination Will get PT and OT evaluation Below is the documentation from admitting provider: Pt presents with altered mental status, found by family looking off and with signs of prior vomiting. Pt reports abdominal pain, in central area, abdomen soft on phys. exam Denies diarrhea but not answering all my questions easily Denies headache or neck pain denies any cough, fever, runny nose Able to answer some questions, but very slowly Able to move extremities Does not recall any medication changes Was treated with Bactrim 04/03 to 04/10 for UTI (prescribed by urgent care) - per outpt chart review Pt reports her symptoms overall improved after abx - presented with abd. pain at that time CT head/ neck in ED - negative for acute changes UA negative CXR negative Will obtain UDS stat CT abdomen/pelvis MR brain w/o contrast EEG blood cultx facial CT (bruise over left eyelid) Pt did not get CTA head and neck in ED d/t YELENA (to avoid contrast related kidney injury) Will obtain echo, A1c, fasting lipid - stroke work-up, neuro-checks Hold baclofen, hydroxyzine - until mental status improved Hold ropinirol Give thiamine Will obtain neuro consult Will cont. to closely monitor, admit to PCU YELENA - Cr 1.7 in ED -received IVF in ED Hold lisinopril-HCTZ - due to YELENA, monitor BMP - will check renal function this PM and tmrw AM - also avoid NSAIDs for pt's back pain Back pain - per family, is chronic - several months - family reports she had XR done in PCP's office - will follow CT abd/pelvis, may further eval / image spine - give tylenol, lidocaine patch - avoid NSAIDs for now until Cr improved/ normalized - hold opioids, muscle relaxer until mental status improved Hx of GERD - cont. famotidine Hx of depression/anxiety, restless leg syndrome - for now hold sertraline, hold ropirinol (as above) -resume when able/ mental status improved Admission and Anticipated Discharge Date Admission Date: May 10, 2025 Subjective 05/11/2025 The patient was seen and examined in telemetry unit She has been stable and does not seems to be in acute confusion Has not been eating and drinking enough prior to admission due to epigastric discomfort and nausea and vomiting She denies any other significant symptoms Review of Systems Review of Systems: All systems reviewed and are unremarkable except as noted below Physical Exam Physical Exam: Lying in bed without any acute distress Constitutional: + ill appearing and average body habitus Eyes: PERRL, conjunctivae normal, anicteric sclerae ENMT: external ear and nose normal, oropharynx normal Neck: trachea midline, no thyromegaly Respiratory: no respiratory distress Auscultation: lungs clear to auscultation bilaterally Cardiovascular: Rate/Rhythm: regular rate and regular rhythm; not tachycardic Heart Sounds: normal S1 and normal S2; no murmur Extremities: no edema Gastrointestinal (Abdomen): Inspection/Auscultation: normal bowel sounds; abdomen not distended Percussion/Palpation: abdomen soft; abdomen nontender Musculoskeletal: No acute arthritis involving any of the joint Neurologic: normal touch/pain/proprioception and moves all extremities; no focal motor deficits and not confused Looks depressed but does not have any acute confusion Lymphatic: no cervical or axillary lymphadenopathy Results & Data Results & Data Vital Signs (Past 12 Hours) Vital Signs Temp Pulse Pulse Resp BP Pulse Ox O2 Del Method 05/11/25 10:12 Room Air 05/11/25 09:54 37.2 C 87 17 155/98 H 98 Room Air 05/11/25 08:25 82 05/11/25 03:29 36.8 C 83 16 152/88 H 98 Room Air Laboratory Results Short CBC 05/10/25 05/11/25 Range/Units 12:47 05:25 WBC 14.46 H 9.16 (4.8-10.8) K/ul Hgb 12.9 11.8 L (12.0-16.0) g/dl Hct 38.8 35.8 L (37.0-47.0) % Plt Count 269 235 (130-400) K/uL BMP 05/10/25 05/10/25 05/11/25 12:47 17:45 05:25 Sodium 143 142 138 Potassium 3.7 3.4 L 3.5 Chloride 104 109 H 106 Carbon Dioxide 28 26 23 BUN 32 H 30 H 18 Creatinine 1.72 H 1.46 H 0.90 D Glucose 119 H 116 H 110 H Calcium 10.5 H 8.9 9.1 Cardiac Enzymes 05/10/25 Range/Units 12:47 Total Creatine Kinase 333 H (26-192) U/L Liver Function 05/10/25 Range/Units 12:47 Total Bilirubin 0.7 (0.2-1.0) mg/dl AST 26 (13-39) U/L ALT 13 (7-52) U/L Alkaline Phosphatase 84 (34-104) U/L Albumin 4.8 (3.4-5.0) gm/dl Urine 05/10/25 Range/Units 13:28 Urine Color Yellow Urine Appearance Clear (Clear) Urine pH 5.5 (4.5-7.5) Ur Specific [place] 1.019 (1.000-1.030) Urine Protein 1+ H (Negative) Urine Glucose (UA) Negative (Negative) Medications Administered Current Inpatient Medications Famotidine (Pepcid 20mg Iv Push) 20 mg in 5 mls @ 2.5 mls/min IV Q12H DURGA Stop: 06/09/25 20:59 Last Admin: 05/11/25 09:14 Dose: 2.5 mls/min Acetaminophen (Ofirmev) 1,000 mg in 100 mls @ 400 mls/hr IV Q8H PRN PRN Reason: Pain Stop: 05/13/25 15:56 Last Infusion: 05/10/25 23:35 Dose: Infused Miscellaneous (Remove Lidoderm Patch) 1 each N/A DAILY@2100 DURGA Stop: 06/09/25 20:59 Last Admin: 05/10/25 20:49 Dose: 1 each
--- NOTE | 2025-05-11 11:57 | Neurology Consultation ---
Date of Consultation May 11, 2025 Assessment & Plan (1) Altered mental state: Jennifer Hernandes is a 64 yo F presenting with multifactorial encephalopathy presumed secondary to UTI, dehydration, YELENA, baclofen use and the fall at home. She is improving with correction of these factors. Suspect ongoing clearing of her mental status though currently fully oriented. EEG is reasonable though low yield, can potentially be deferred to outpatient. Do not suspect this was a seizure. MRI is reassuring otherwise. Recommend continued supportive care. -- Routine EEG ordered -- Continued medical supportive care for the dehydration/YELENA which seems to have resolved -- Delirium precautions -- Please contact us with any further questions, we will follow peripherally for EEG results. Telehealth Consultation Telehealth Information Telehealth Information: I performed this visit using a real-time telehealth connection between my location and the patients location ([facility]). After connecting through interactive tele-video, patient was identified by name and date of and/or wristband check.Patient (or authorized healthcare field sales representative) was informed that this was a telemedicine visit and it was being conducted confidentially over secure lines. My office door was closed and no one else was present in the room with me.Patient (or authorized healthcare field sales representative) provided consent to proceed with the visit, expressed an understanding of privacy and security of the telemedicine visit, and gave permission to have a hospital field sales representative in the room in order to assist with the visit and to conduct portions of the visit, as needed. I informed the patient (or authorized healthcare field sales representative) that I reviewed their record and presented the opportunity for them to ask any questions regarding the visit today. The patient agreed to participate. History of Present Illness Reason for Consultation: Confusion Requesting Physician: Dr. Araiza Attending Physician: Nydia Araiza MD History of Present Illness Jennifer Hernandes is a 64 yo F presenting with confusion and hallucinations after a fall yesterday. The patient has chronic back pain and manages her own medications. She was in the laundry room yesterday and remembers taking her baclofen for the back pain. She then believes she tripped over something and called a family member to assist. Family then notes she became more confused and was seeing things that werent there. The patient admits to these hallucinations and describes seeing her mother as an carmen. Of note she was being treated for a UTI and on arrival to the ED was found to be dehydrated. Per notes from yesterday she was disoriented and talking slowly, having difficulty following commands. This afternoon she is improved. Per family at bedside this has never happened to her before. Allergies Allergy/AdvReac Type Severity Reaction Status Date / Time bee venom protein (honey bee) AdvReac Nausea Verified 02/15/24 12:16 Home Medications Medication Instructions Recorded Confirmed Type baclofen 5 mg tablet 5 mg PO DAILY PRN Pain 02/15/24 05/10/25 History ergocalciferol (vitamin D2) 1,250 50,000 unit PO WK 02/15/24 05/10/25 History mcg (50,000 unit) capsule famotidine 20 mg tablet 20 mg PO BID 02/15/24 05/10/25 History fluticasone propionate 50 0 spray intranasal DAILY 02/15/24 05/10/25 History mcg/actuation nasal spray,suspension (Flonase Allergy Relief) hydroxyzine HCl 25 mg tablet 25 mg PO HS PRN .sleep/anx 02/15/24 05/10/25 History lisinopril 10 1 tab PO DAILY 02/15/24 05/10/25 History mg-hydrochlorothiazide 12.5 mg tablet lovastatin 20 mg tablet 20 mg PO DAILY 02/15/24 05/10/25 History multivitamin 1 tab PO DAILY 02/15/24 05/10/25 History omeprazole 20 mg capsule,delayed 20 mg PO QAM 02/15/24 05/10/25 History release ondansetron HCl 4 mg tablet 4 mg PO Q8H PRN nausea and 10/13/24 05/10/25 Rx vomiting #15 tabs metformin 500 mg tablet 500 mg PO BID 05/10/25 05/10/25 History prazosin 1 mg capsule 1 mg PO HS 05/10/25 05/10/25 History propranolol 10 mg tablet 10 mg PO DAILY 05/10/25 05/10/25 History ropinirole 4 mg tablet 4 mg PO DAILY 05/10/25 05/10/25 History sertraline 100 mg tablet 100 mg PO DAILY 05/10/25 05/10/25 History Patient History Medical History Dyslipidemia Anxiety Hypertension GERD (gastroesophageal reflux disease) Surgical History S/P KEV-BSO Social History Smoking Status: Never smoker Hx Alcohol Use: Yes Alcohol type: beer and wine Hx Substance Use: No Preferred Language: Irish Communication Ability: Effective It Security Analyst Required: No Beliefs That Will Affect Care: None Current Living Situation: Family Other Information That Helps Us Care for You: No Feels Safe at Home: Yes Safety Concerns: Feels Safe At This Time Assistive Devices: Cane Review of Systems +confusion Physical Exam Neurological Examination: Mental Status: Awake and alert. Oriented to person, place, and time. Fluent. Comprehension intact. Affect appropriate. Cranial Nerves: II: Reads NIHSS cards, pupils 3/3 to 2/2, richmond grossly intact. III/IV/: Versions intact without nystagmus, no gaze preference. VII: Facial expression symmetric VIII: Hearing intact to voice Motor: Strength was symmetric and antigravity throughout. Pronator drift was absent. There were no abnormal movements. Results & Data Vital Signs (Past 12 Hours) Vital Signs Temp Pulse Pulse Resp BP Pulse Ox O2 Del Method 05/11/25 10:12 Room Air 05/11/25 09:54 37.2 C 87 17 155/98 H 98 Room Air 05/11/25 08:25 82 05/11/25 03:29 36.8 C 83 16 152/88 H 98 Room Air Laboratory Results Abnormal lab results 05/10/25 05/10/25 05/10/25 Range/Units 12:47 12:50 13:28 WBC 14.46 H (4.8-10.8) K/ul RBC (4.20-5.40) M/uL Hgb (12.0-16.0) g/dl Hct (37.0-47.0) % MPV (9.4-12.4) fL Faulk # (Auto) (0.11-0.59) K/uL Potassium (3.5-5.1) mmol/L Chloride (98-107) mmol/L POC BUN 31 H (7-18) mg/dl BUN 32 H (6-23) mg/dl Creatinine 1.72 H (0.6-1.2) mg/dl POC Creatinine 1.9 H (0.6-1.3) mg/dl BUN/Creatinine Ratio (10-20) Glucose 119 H (70-99(Fasting)) mg/dl POC Glucose (other) 119 H (70-99) mg/dl Hemoglobin A1c (4.5-5.6) % Calcium 10.5 H (8.6-10.3) mg/dl Total Creatine Kinase 333 H (26-192) U/L Cholesterol (0-200) mg/dl Urine Protein 1+ H (Negative) Urine Ketones 1+ H (Negative) Urine Blood 1+ H (Negative) U Hyaline Cast (Auto) >20 H (0-2) /lpf U Epithel Cells (Auto) 6-10 H (0-2) /hpf Hyaline Casts Present A (None Presnt) /lpf Granular Casts Present A (None Prsent) /lpf 05/10/25 05/11/25 Range/Units 17:45 05:25 WBC (4.8-10.8) K/ul RBC 4.02 L (4.20-5.40) M/uL Hgb 11.8 L (12.0-16.0) g/dl Hct 35.8 L (37.0-47.0) % MPV 12.6 H (9.4-12.4) fL Faulk # (Auto) 0.89 H (0.11-0.59) K/uL Potassium 3.4 L (3.5-5.1) mmol/L Chloride 109 H (98-107) mmol/L POC BUN (7-18) mg/dl BUN 30 H (6-23) mg/dl Creatinine 1.46 H (0.6-1.2) mg/dl POC Creatinine (0.6-1.3) mg/dl BUN/Creatinine Ratio 20.5 H (10-20) Glucose 116 H 110 H (70-99(Fasting)) mg/dl POC Glucose (other) (70-99) mg/dl Hemoglobin A1c 5.8 H (4.5-5.6) % Calcium (8.6-10.3) mg/dl Total Creatine Kinase (26-192) U/L Cholesterol 219 H (0-200) mg/dl Urine Protein (Negative) Urine Ketones (Negative) Urine Blood (Negative) U Hyaline Cast (Auto) (0-2) /lpf U Epithel Cells (Auto) (0-2) /hpf Hyaline Casts (None Presnt) /lpf Granular Casts (None Prsent) /lpf Diagnostic Findings Cervical Spine CT 05/10/25 12:43 Clinical history: Confusion Technique: Axial computed tomography images were obtained of the cervical spine without intravenous contrast. Sagittal and coronal reconstructions were obtained Findings: No definite cervical spine fracture is identified. There is a mild T1 compression fracture, likely old. There is also a mild T3 compression fracture. No listhesis is seen. No focal osseous lesion is evident. The atlantoaxial articulation appears unremarkable. At C2-3, there is a mild disc bulge. There is no spinal stenosis. The neural foramen are patent At C3-4, no disc herniation is identified. There is no spinal stenosis. The neural foramen are patent At C4-5, no disc herniation is identified. There is no spinal stenosis. The neural foramen are patent At C5-6, there is a disc bulge without spinal stenosis. The neural foramen are patent At C6-7, there is a mild disc bulge. There is no spinal stenosis. The neural foramen are patent At C7-T1,no disc herniation is identified. There is no spinal stenosis. The neural foramen are patent The lung apices appear clear. The visualized soft tissues of the neck appear unremarkable. No foreign body is seen Impression: 1. No definite cervical spine fracture 2. Mild T1 and T3 compression fractures, likely old but of indeterminate age Electronically signed by Clark Cherry 05-10-2025 2:15 PM Chest X-Ray 05/10/25 12:43 Technique: A frontal view of the chest was obtained Comparison is made to the prior examination dated 10/13/2024 Findings: There are no confluent pulmonary infiltrates. The heart size is within normal limits. No pleural effusion or pneumothorax is seen. There is no definite pulmonary nodule. No fracture is noted. No foreign body is seen Impression: No active disease Electronically signed by Clark Cherry 05-10-2025 13:[address] 05/10/25 12:43 Clinical History: Confusion. Technique: Axial computed tomography images were obtained of the brain from the vertex to the skull base without intravenous contrast. Findings: There is no sign of intracranial hemorrhage. There is normal fitzgerald-white matter differentiation with no sign of acute or old infarction. No midline shift or other form of herniation is identified. There is no hydrocephalus. No obvious mass lesion is seen on this noncontrast examination. The visualized portions of the orbits and paranasal sinuses appear unremarkable. The mastoid air cells appear clear Impression: Unremarkable noncontrast CT of the brain Electronically signed by Clark Cherry 05-10-2025 13:[address] 05/10/25 14:54 Clinical history: Trauma Technique: Axial computed tomography images were obtained of the facial bones without intravenous contrast. Sagittal and coronal reconstructions were obtained Findings: No fracture is identified. No focal osseous lesion is noted. There is mild mucosal thickening throughout the paranasal sinuses. No air-fluid level is seen The orbits appear unremarkable. No foreign body is seen. The nasal septum appears midline. There is lashanda bullosa of the middle nasal turbinates bilaterally. No definite nasal polyp is noted Impression: 1. No definite facial bone fracture 2. Chronic sinusitis Electronically signed by Clark Cherry 05-10-2025 3:42 PM Abdomen/Pelvis CT 05/10/25 15:20 Clinical History: Abdominal pain Technique: Axial computed tomography images were obtained of the abdomen and pelvis without intravenous contrast. Comparison is made to the prior CT dated 10/13/2024 Findings: The liver is overall of normal size, attenuation, and contour with no sign of cirrhosis or significant fatty infiltration. No definite liver mass lesion is seen on this noncontrast study. The gallbladder appears unremarkable. No bile duct dilatation is noted. The spleen is of normal size. No focal splenic lesion is evident. The pancreas appears normal with no sign of acute or chronic pancreatitis and no mass lesion noted. The pancreatic duct is of normal caliber. The adrenal glands appear unremarkable. No renal or proximal ureteral calculi are seen. There is no hydronephrosis or perinephric stranding. No definite renal mass lesion is identified. The aorta is of normal caliber. No abdominal adenopathy is seen. There is a moderate sized hiatal hernia, increased in size. There is no sign of small bowel obstruction. The colon appears unremarkable. The appendix appears normal also. No free intraperitoneal fluid or air is identified. No distal ureteral or bladder calculi are seen. No obvious bladder mass lesion is evident. The iliac arteries are of normal caliber. No pelvic adenopathy is noted. There are small bilateral inguinal hernias containing only fat. The uterus has been removed The lungs bases appear clear. Mild thoracolumbar degenerative disc disease is seen. There is an unchanged L2 compression fracture. No focal osseous lesion is seen Impression: 1. Moderate sized hiatal hernia, increased in size 2. Small bilateral inguinal hernias containing only fat 3. Unchanged L2 compression fracture Electronically signed by Clark Cherry 05-10-2025 3:45 PM Brain MRI 05/10/25 15:21 Exam: MRI brain without contrast. Reason for exam: Altered mental status. Previous studies: CT head unenhanced 05/10/2025 FINDINGS: No evidence of mass or enlargement of the pituitary. Diffusion weighted images do not show any evidence of acute restricted diffusion to indicate ischemia at this time. No mass effect, hemorrhage or edema is seen. Ventricular size is normal without midline shift or extra-axial blood/fluid collection. The mastoids show no significant abnormal signal. Mild diffuse mucosal thickening seen in the visualized paranasal sinuses. Intraorbital contents are grossly intact. IMPRESSION: 1. Negative for acute intracranial process. No acute ischemia, mass or hemorrhage. 2. Mild diffuse mucosal thickening in the paranasal sinuses. Electronically signed by Osiel Soriano 05-10-2025 5:44 PM
[2025-05-12 04:47] LABS: Hematocrit (blood only) 38.6 % (37.0-47.0); Hemoglobin 12.9 g/dl (12.0-16.0); Immature Granulocytes # (auto) 0.06 K/uL (0.01-0.20); Immature Granulocytes % (auto) 0.6 %; Mean Corpuscular Hemoglobin 29.3 pg (25.0-34.0); Mean Corpuscular Volume 87.5 fL (80.0-100.0); Platelet Count 230 K/uL (130-400); RDW Standard Deviation 42.3 fL (36.4-46.3); Red Blood Count 4.41 M/uL (4.20-5.40); White Blood Count 10.86 K/ul (4.8-10.8)
[2025-05-12 05:03] LABS: Anion Gap 9.0 (3-11); Blood Urea Nitrogen 11.0 mg/dl (6-23); Calcium 9.5 mg/dl (8.6-10.3); Carbon Dioxide 26.0 mmol/L (21-32); Chloride 101.0 mmol/L (98-107); Creatinine Clr Calc Pharmacy 68.3 ml/min; Glucose 141.0 mg/dl (70-99(Fasting)); Potassium 3.5 mmol/L (3.5-5.1); Sodium 136.0 mmol/L (136-145)
--- NOTE | 2025-05-12 11:47 | Psychiatric Consultation ---
Date of Consultation May 12, 2025 Impression / Recommendations Impression Diagnostically unclear but suspect possible hallucinations from encephalopathy due to recent illness versus hypnagogic hallucination versus medication side effect. No evidence for current psychotic progress or major mood symptoms. Acute risk of self-harm is low given denial of SI. Recommend continuing sertraline for depression/anxiety. Would hold prazosin for now given concern this could have contributed to fall if she developed orthostatic hypotension. If ropinirole was recently added or dose increased then consider holding as can rarely lead to psychosis via dopaminergic effects. If no recent changes to this, reasonable to continue. Overall, I spent a total of 60 minutes with this case including review of chart records, review of labwork, review of EKG QTc, direct evaluation of the patient at bedside, counseling the patient, discussion of the patient with the hospitalist provider, discussion with the psychiatric liason during clinical rounds and documentation in the electronic health record. (1) Altered mental state: Plan -Restart sertraline -discontinue prazosin, could consider restarting in the future if no further concerns for low BP/possible syncope contributing to fall/confusion -No indication for further psychiatric medication at this point -Continue to treat underlying causes for suspected encephalopathy (seems to be resolving) Psych History Identifying Data Jennifer Hernandes is a 64 yo woman with hx of dyslipidemia, restless leg syndrome, pos s. dementia (questionable), depression/ anxiety, who presents d/t altered mental status. Psychiatry consulted for recommendations for hallucinations. Chief Complaint "I thought someone was in the house and was running away and fell". History of Present Illness Jennifer was admitted for confusion with concern for confusion and dehydration/volume depletion. She reports possible visual hallucination vs dream of seeing someone in the home and fearing they might harm her. Also reportedly saw hallucinations of her family member as an carmen. Today she is A&O. Denies any further hallucinations. She suspects it may have been from confusing her dreams with reality. Endorses periods of bad dreams. Allergies Allergy/AdvReac Type Severity Reaction Status Date / Time bee venom protein (honey bee) AdvReac Nausea Verified 02/15/24 12:16 Home Medications Medication Instructions Recorded Confirmed Type baclofen 5 mg tablet 5 mg PO DAILY PRN Pain 02/15/24 05/10/25 History ergocalciferol (vitamin D2) 1,250 50,000 unit PO WK 02/15/24 05/10/25 History mcg (50,000 unit) capsule famotidine 20 mg tablet 20 mg PO BID 02/15/24 05/10/25 History fluticasone propionate 50 0 spray intranasal DAILY 02/15/24 05/10/25 History mcg/actuation nasal spray,suspension (Flonase Allergy Relief) hydroxyzine HCl 25 mg tablet 25 mg PO HS PRN .sleep/anx 02/15/24 05/10/25 History lisinopril 10 1 tab PO DAILY 02/15/24 05/10/25 History mg-hydrochlorothiazide 12.5 mg tablet lovastatin 20 mg tablet 20 mg PO DAILY 02/15/24 05/10/25 History multivitamin 1 tab PO DAILY 02/15/24 05/10/25 History omeprazole 20 mg capsule,delayed 20 mg PO QAM 02/15/24 05/10/25 History release ondansetron HCl 4 mg tablet 4 mg PO Q8H PRN nausea and 10/13/24 05/10/25 Rx vomiting #15 tabs metformin 500 mg tablet 500 mg PO BID 05/10/25 05/10/25 History prazosin 1 mg capsule 1 mg PO HS 05/10/25 05/10/25 History propranolol 10 mg tablet 10 mg PO DAILY 05/10/25 05/10/25 History ropinirole 4 mg tablet 4 mg PO DAILY 05/10/25 05/10/25 History sertraline 100 mg tablet 100 mg PO DAILY 05/10/25 05/10/25 History Patient History Medical History Dyslipidemia Anxiety Hypertension GERD (gastroesophageal reflux disease) Surgical History S/P KEV-BSO Social History Smoking Status: Never smoker Hx Alcohol Use: Yes Alcohol type: beer and wine Hx Substance Use: No Preferred Language: Kuwaiti Communication Ability: Effective Plaque Maker Required: No Beliefs That Will Affect Care: None Current Living Situation: Family Other Information That Helps Us Care for You: No Feels Safe at Home: Yes Safety Concerns: Feels Safe At This Time Assistive Devices: Cane and Walker Physical Exam Psychiatric: Orientation: alert and oriented x 3 Apperance: appropriately dressed and appropriately groomed Eye Contact: good eye contact Motor Behavior: no abnormal motor movements Speech: normal rate/rhythm/volume of speech Affect: + constricted affect Mood: + anxious mood; no depressed mood Thought Process: linear/logical thought process Thought Content: reality based without delusions Suicidal Thoughts: denies suicidal thoughts Homicidal Thoughts: denies homicidal thoughts Hallucinations: no auditory hallucinations and no visual hallucinations Cognition: recent memory grossly intact, remote memory grossly intact, attention grossly intact and language grossly intact Estimated Intelligence: consistent with education level Insight: + limited insight Judgment: + fair judgement Vital Signs (Past 24 Hours): Last Vital Signs Temp 36.9 C 05/12/25 08:23 Pulse 81 05/12/25 08:23 Resp 16 05/12/25 08:23 BP 119/79 05/12/25 08:23 Pulse Ox 97 05/12/25 08:23 O2 Del Method Room Air 05/12/25 08:23 Results & Data (PSY) Medications Administered Famotidine (Pepcid 20mg Iv Push) 20 mg in 5 mls @ 2.5 mls/min IV Q12H DURGA Stop: 06/09/25 20:59 Last Admin: 05/12/25 08:55 Dose: 2.5 mls/min Documented By: Admin: 05/11/25 20:14 Dose: 2.5 mls/min Documented By: Admin: 05/11/25 09:14 Dose: 2.5 mls/min Documented By: Admin: 05/10/25 20:48 Dose: 2.5 mls/min Documented By: MITCHEL Acetaminophen (Ofirmev) 1,000 mg in 100 mls @ 400 mls/hr IV Q8H PRN PRN Reason: Pain Stop: 05/13/25 15:56 Last Infusion: 05/10/25 23:35 Dose: Infused Documented By: Admin: 05/10/25 23:16 Dose: 400 mls/hr Documented By: MITCHEL Miscellaneous (Remove Lidoderm Patch) 1 each N/A DAILY@2100 DURGA Stop: 06/09/25 20:59 Last Admin: 05/11/25 20:14 Dose: Not Given Documented By: Admin: 05/10/25 20:49 Dose: 1 each Documented By: ASM Coding Level of Care Code 86665 IN/OBS CONSULT LVL 4,60M Diagnoses Altered mental state R41.82
[2025-05-12] MEDS: LISINOPRIL/HCTZ 10/12.5MG TAB PO SCH (13:58)
[2025-05-12] MEDS: FLUTICASONE PROPIONATE NA SPR 16 GM BTL SCH (13:59)
[2025-05-12] MEDS: PROPRANOLOL HCL 10 MG TAB PO SCH (13:59)
[2025-05-12] MEDS: SERTRALINE HCL 100 MG TABLET PO SCH (13:59)
--- NOTE | 2025-05-12 14:29 | Hospitalist Progress Note ---
Date of Service May 12, 2025 Assessment & Plan (1) Altered mental state: Plan: Presented with altered mental status No definite cause found so far except noted to be dehydrated CT of the head and MRI of the head remain unremarkable Hold baclofen, hydroxyzine - until mental status improved Hold ropinirol Seems to be at his baseline and does not have any acute confusion during examination Remains slow in her responses which could be her baseline with depres mark/anxiety Advised to drink more fluid Has had hallucination yesterday but seems to be resolving this morning Appreciate psychiatrist input and recommendation- Zoloft and Requip have been restarted (2) YELENA (acute kidney injury): Plan: Noted to have YELENA with BUN of 30 and creatinine 1.6 Likely secondary to not been eating and drinking for the last day or 2 with nausea and vomitingcould be secondary to gastroenteritis Received IV fluid and advised to drink more fluid YELENA is resolved- Strongly advised to continue drinking more fluid (3) Leukocytosis: Plan: Noted to have minimally increased white cell count of 14,000- likely secondary to a stress No evidence of infection and the white count reverted to normal (4) Vomiting: (5) Abdominal pain: (6) Back pain: Plan: Back pain - per family, is chronic - several months - family reports she had XR done in PCP's office CT of the abdomen and pelvis showed unchanged L2 compression fracture CT of the face did not show any fracture CT of the cervical spine showed mild T1 and T3 compression fracture Patient does not have any significant pain during my examination Will get PT and OT evaluation Below is the documentation from admitting provider: Pt presents with altered mental status, found by family looking off and with signs of prior vomiting. Pt reports abdominal pain, in central area, abdomen soft on phys. exam Denies diarrhea but not answering all my questions easily Denies headache or neck pain denies any cough, fever, runny nose Able to answer some questions, but very slowly Able to move extremities Does not recall any medication changes Was treated with Bactrim 04/03 to 04/10 for UTI (prescribed by urgent care) - per outpt chart review Pt reports her symptoms overall improved after abx - presented with abd. pain at that time CT head/ neck in ED - negative for acute changes UA negative CXR negative Will obtain UDS stat CT abdomen/pelvis MR brain w/o contrast EEG blood cultx facial CT (bruise over left eyelid) Pt did not get CTA head and neck in ED d/t YELENA (to avoid contrast related kidney injury) Will obtain echo, A1c, fasting lipid - stroke work-up, neuro-checks Hold baclofen, hydroxyzine - until mental status improved Hold ropinirol Give thiamine Will obtain neuro consult Will cont. to closely monitor, admit to PCU YELENA - Cr 1.7 in ED -received IVF in ED Hold lisinopril-HCTZ - due to YELENA, monitor BMP - will check renal function this PM and tmrw AM - also avoid NSAIDs for pt's back pain Back pain - per family, is chronic - several months - family reports she had XR done in PCP's office - will follow CT abd/pelvis, may further eval / image spine - give tylenol, lidocaine patch - avoid NSAIDs for now until Cr improved/ normalized - hold opioids, muscle relaxer until mental status improved Hx of GERD - cont. famotidine Hx of depression/anxiety, restless leg syndrome - for now hold sertraline, hold ropirinol (as above) -resume when able/ mental status improved Admission and Anticipated Discharge Date Admission Date: May 10, 2025 Subjective 05/11/2025 The patient was seen and examined in telemetry unit She has been stable and does not seems to be in acute confusion Has not been eating and drinking enough prior to admission due to epigastric di scomfort and nausea and vomiting She denies any other significant symptoms 05/12/2025 The patient was seen and examined in telemetry unit He has had hallucinations last evening but this seems to be decreased this morning Looked depressed Denies any significant symptoms Review of Systems Review of Systems: All systems reviewed and are unremarkable except as noted below Physical Exam Physical Exam: Lying in bed without any acute distress Constitutional: + ill appearing and average body habitus Eyes: PERRL, conjunctivae normal, anicteric sclerae ENMT: external ear and nose normal, oropharynx normal Neck: trachea midline, no thyromegaly Respiratory: no respiratory distress Auscultation: lungs clear to auscultation bilaterally Cardiovascular: Rate/Rhythm: regular rate and regular rhythm; not tachycardic Heart Sounds: normal S1 and normal S2; no murmur Extremities: no edema Gastrointestinal (Abdomen): Inspection/Auscultation: normal bowel sounds; abdomen not distended Percussion/Palpation: abdomen soft; abdomen nontender Musculoskeletal: No acute arthritis involving any of the joints Neurologic: normal touch/pain/proprioception and moves all extremities; no focal motor deficits and not confused Lymphatic: no cervical or axillary lymphadenopathy Results & Data Results & Data Vital Signs (Past 12 Hours) Vital Signs Temp Pulse Resp BP Pulse Ox O2 Del Method 05/12/25 12:25 36.5 C 105 H 16 99 Room Air 05/12/25 08:23 36.9 C 81 16 119/79 97 Room Air 05/12/25 03:24 36.7 C 84 17 153/93 H 97 Room Air Laboratory Results Short CBC 05/12/25 Range/Units 04:19 WBC 10.86 H (4.8-10.8) K/ul Hgb 12.9 (12.0-16.0) g/dl Hct 38.6 (37.0-47.0) % Plt Count 230 (130-400) K/uL BMP 05/12/25 04:19 Sodium 136 Potassium 3.5 Chloride 101 Carbon Dioxide 26 BUN 11 Creatinine 0.78 Glucose 141 H Calcium 9.5 Medications Administered Current Inpatient Medications Fluticasone Propionate (Fluticasone Propionate Na Spr 16 Gm Btl) 0 sprays NA DAILY DURGA Stop: 06/11/25 13:14 Last Admin: 05/12/25 13:59 Dose: 2 sprays Lisinopril/HCTZ (Lisinopril/Hctz 10/12.5mg Tab) 1 tab PO DAILY DURGA Stop: 06/11/25 13:14 Last Admin: 05/12/25 13:58 Dose: 1 tab Famotidine (Pepcid 20mg Iv Push) 20 mg in 5 mls @ 2.5 mls/min IV Q12H DURGA Stop: 06/09/25 20:59 Last Admin: 05/12/25 08:55 Dose: 2.5 mls/min Acetaminophen (Ofirmev) 1,000 mg in 100 mls @ 400 mls/hr IV Q8H PRN PRN Reason: Pain Stop: 05/13/25 15:56 Last Infusion: 05/10/25 23:35 Dose: Infused Lovastatin (Lovastatin 20 Mg Tab) 20 mg PO DAILY DURGA Stop: 06/12/25 08:59 Miscellaneous (Remove Lidoderm Patch) 1 each N/A DAILY@2100 DURGA Stop: 06/09/25 20:59 Last Admin: 05/11/25 20:14 Dose: Not Given Propranolol HCl (Propranolol Hcl 10 Mg Tab) 10 mg PO DAILY DURGA Stop: 06/11/25 13:14 Last Admin: 05/12/25 13:59 Dose: 10 mg Ropinirole HCl (Ropinirole Hcl 2 Mg Tablet) 4 mg PO DAILY DURGA Stop: 06/12/25 08:59 Sertraline HCl (Sertraline Hcl 100 Mg Tablet) 100 mg PO DAILY DURGA Stop: 06/11/25 13:14 Last Admin: 05/12/25 13:59 Dose: 100 mg
[2025-05-12] MEDS: NITROGLYCERIN 2% OINTMENT 30GM TUBE EXT STA (15:40)
[2025-05-12] MEDS: METOPROLOL TARTRATE 1 MG/ML VIAL IV ONE (16:38)
[2025-05-12] MEDS: METOPROLOL TARTRATE 1 MG/ML VIAL IV STA (16:42)
[2025-05-12] MEDS: ACETAMINOPHEN 325 MG TAB PO PRN (21:00)
[2025-05-12] MEDS: LIDOCAINE 5% 1 PATCH TD SCH (23:36)
[2025-05-13 06:34] LABS: Anion Gap 9.0 (3-11); Blood Urea Nitrogen 13.0 mg/dl (6-23); Calcium 9.4 mg/dl (8.6-10.3); Carbon Dioxide 27.0 mmol/L (21-32); Chloride 98.0 mmol/L (98-107); Creatinine Clr Calc Pharmacy 70.6 ml/min; Glucose 123.0 mg/dl (70-99(Fasting)); Potassium 3.7 mmol/L (3.5-5.1); Sodium 134.0 mmol/L (136-145)
[2025-05-13 08:01] VITALS: RESP 16; TEMP 98.1; O2SAT 94
[2025-05-13] MEDS: LOVASTATIN 20 MG TAB PO SCH (08:56)
[2025-05-13] MEDS ORDERED: LIDOCAINE 5% 1 PATCH TD SCH (09:00)
--- NOTE | 2025-05-13 12:32 | Discharge Summary ---
Discharge Summary Date of Service May 13, 2025 Principal Dx & Hospital Course #1 = Principal Diagnosis (1) Acute metabolic encephalopathy: (2) YELENA (acute kidney injury): (3) Dehydration: (4) Compression fracture of body of thoracic vertebra: (5) Compression fracture of L2 vertebra with routine healing: (6) Degenerative disc disease, lumbar: (7) Hiatal hernia: (8) Diabetes mellitus type 2, controlled: Plan Patient 64-year-old female presented to the emergency room with an altered mental state. There was some evidence that the patient had some vomiting prior to presentation to the ED. Patient was somewhat slow to answer questions and seemed not to be in her usual mental state according to family and was referred for hospitalization. Patient was admitted to hospital. She was given IV fluid resuscitation. Medications that could alter her mental status were held. She underwent MRI of the brain which was negative for acute stroke. Was evaluated by neurology who recommended supportive care, could consider outpatient EEG. Patient was also evaluated by psychiatry who made some recommendations on continuing some of her chronic medications. Through the course of her hospitalization and patient's mental status returned to baseline. It was thought that the patient has some dehydration. With this we will discontinue the hydrochlorothiazide she was taking as an outpatient. Her acute kidney injury resolved with hydration. She can restart her medications for diabetes. She can increase her lisinopril for better blood pressure control. Still complaining of some chronic abdominal pain and back pain. Both these pains are somewhat chronic in nature. Imaging did reveal hiatal hernia in the abdomen which could explain some of her abdominal pain. She was treated with PPI. Patient also has some chronic appearing compression fractures in the thoracic and lumbar spine. This seems to be well-controlled and easily controlled with the Lidoderm patch. Case management was involved in patient's care to help with discharge planning. They confirmed that the patient will be returning to live with her father and stepmother. Therapies evaluated the patient while here and determined the patient could return to her home living situation. Patient will be discharged home to follow-up with her PCP and into the care of her family. Phone conversation with the patient's stepmomNataly, at the time of discharge, where the patient being discharged today and will plan to pick her up. Notes For Next Care Provider May need ongoing titration of blood pressure medication Medication Changes From Visit Lisinopril hydrochlorothiazide discontinued Lisinopril continued at 20 mg daily Baclofen discontinued Zofran discontinued Prazosin discontinued Admission HPI Per Admitting Provider 64 F with hx of dyslipidemia, restless leg syndrome, poss. dementia (questionable), depression/ anxiety, who presents d/t altered mental status. Pt found by family today, looking off, and found she vomited. She was not answering appropriately and was brought to ER. In ER pt is awake but answers slowly and not able to fully answer questions. Only has simple responses. She does follow commands, such as she moves her legs when asked, she moves her arms, she moves her head left, right, down, up without any problem. Reports she has been feeling sick since yesterday. Father is present in the ER room and thinks she has been looking sick for past 3-4 days. No fevers, cough, rhinorrhea though. He reports she usually walks by herself, has a limp. Not eating well, just snacking. Patient lives with her father and his (step mother). Father says he and his left the house in the morning, then they called her and nobody was answering so granddaughter went to check on the pt. Update: I was later able to discuss with pt's stepmother and granddaughter. Per their report pt was at her usual state of health yesterday - she was doing laundry. After that pt was complaining of back ache and took muscle relaxers. After that she looked off and sick last evening. Today, late morning found by granddaughter, not answering appropriately and found vomit all over pt's clothes -> pt was taken to ER. Per chart review - pt seen at [facility] neurology office in January 2025 for "memory issues" - at that time it was not felt she had dementia and donepezil was stopped. She is supposed to follow up in 3 months - around 05/13/2025, pt has an appointment scheduled for 07/07/2025. Fam. hx - mother - "memory issues", father - HTN, brother - DM, HTN Admission Exam Per Admitting Provider See H&P Discharge Exam Constitutional: Alert, sitting in chair, able to answer questions appropriately HEENT: Mucous membranes moist. Lungs: Clear to auscultation, decreased, no wheezes rales or rhonchi CV: S1-S2, regular Abdomen: Soft, nontender, nondistended Extremities: No significant edema Neuro: No focal deficits Psych: Cooperative, normal mood Updated Medication List Medication Instructions Recorded Confirmed Type baclofen 5 mg tablet 5 mg PO DAILY PRN Pain 02/15/24 05/10/25 History ergocalciferol (vitamin D2) 1,250 50,000 unit PO WK 02/15/24 05/10/25 History mcg (50,000 unit) capsule famotidine 20 mg tablet 20 mg PO BID 02/15/24 05/10/25 History fluticasone propionate 50 0 spray intranasal DAILY 02/15/24 05/10/25 History mcg/actuation nasal spray,suspension (Flonase Allergy Relief) hydroxyzine HCl 25 mg tablet 25 mg PO HS PRN .sleep/anx 02/15/24 05/10/25 History lisinopril 10 1 tab PO DAILY 02/15/24 05/10/25 History mg-hydrochlorothiazide 12.5 mg tablet lovastatin 20 mg tablet 20 mg PO DAILY 02/15/24 05/10/25 History multivitamin 1 tab PO DAILY 02/15/24 05/10/25 History omeprazole 20 mg capsule,delayed 20 mg PO QAM 02/15/24 05/10/25 History release ondansetron HCl 4 mg tablet 4 mg PO Q8H PRN nausea and 10/13/24 05/10/25 Rx vomiting #15 tabs metformin 500 mg tablet 500 mg PO BID 05/10/25 05/10/25 History prazosin 1 mg capsule 1 mg PO HS 05/10/25 05/10/25 History propranolol 10 mg tablet 10 mg PO DAILY 05/10/25 05/10/25 History ropinirole 4 mg tablet 4 mg PO DAILY 05/10/25 05/10/25 History sertraline 100 mg tablet 100 mg PO DAILY 05/10/25 05/10/25 History lidocaine 5 % topical patch 1 patch transdermal HS #10 ea 05/13/25 Rx lisinopril 20 mg tablet 20 mg PO DAILY #30 tabs 05/13/25 Rx Hospital Stay Data Consultations 05/10/25 14:52 ED Decision to Admit Stat 05/10/25 16:06 Consult Neurology Routine 05/12/25 07:28 Consult Psychiatry Routine Diagnostic Imagining Performed 05/10/25 12:43 CT cervical spine wo con Stat CT head/brain wo con Stat 05/10/25 14:54 CT facial bones wo con Urgent 05/10/25 15:20 CT Abdomen and Pelvis [CT abd pelvis wo con] Urgent 05/10/25 15:21 MR brain wo con Urgent Reviewed imaging, laboratory and diagnostic studies. Pertinent findings as below. Sodium 134 Potassium 3.7 Creatinine 0.75, improved MRI of the brain negative for acute ischemia CT of the abdomen pelvis did show a hiatal hernia CT of the face negative for fractures Head CT no acute abnormalities Cervical spine CT no fractures, some mild compression fracture of T1 and T3 CBC stable Hemoglobin A1c 5.8% Pending Results Patient Have Any Pending Studies at Discharge: No Discharge Instructions Given to Patient (Per Discharging Provider) Discussed with your outpatient provider outpatient therapies Continue to follow-up with any other specialists as previously arranged Total Time Total Time Spent Total Time Spent (In Minutes): 36
[2025-05-13 13:48] VITALS: BP 149/106; PULSE 83
[2025-05-13] MEDS: REMOVE LIDODERM PATCH SCH (14:26)
[2025-05-13] MEDS ORDERED: REMOVE LIDODERM PATCH SCH (21:00)
--- NOTE | 2025-05-14 13:37 | Coding Query ---
CODING QUERY To promote full compliance with coding requirements relating to patient care, provider participation is requested in all cases of supercharger repair supervisor uncertainty. Please assist us with the question(s) below: Coding Question(s): Encephalopathy is documented in the record and on Discharge Summary. The 05/11 Neurology Consultation documents, "presenting with multifactorial encephalopathy presumed secondary to UTI, dehydration, YELENA, baclofen use and the fall at home. She is improving with correction of these factors. Suspect ongoing clearing of her mental status though currently fully oriented", and the 05/12 Psychiatric Consultation documents, "Diagnostically unclear but suspect possible hallucinations from encephalopathy due to recent illness versus hypnagogic hallucination versus medication side effect", and the Discharge Summary documents, "Acute metabolic encephalopathy". Please specify below, in your clinical opinion, regarding the most likely cause(s) of Acute Metabolic Encephalopathy: ( x) Acute Metabolic Encephalopathy is likely multifactorial due to dehydration, Acute Kidney Injury, baclofen use/medication side effect, history of UTI and fall at home ( ) Acute Metabolic Encephalopathy is likely due to Other: Please Specify Physician's Response(s): Thank you Shea Coker Principal Diagnosis: "that condition established after study, to be chiefly responsible for occasioning the admission of the patient to the hospital for care." Co-Existing Principal Diagnosis: "when two or more diagnoses equally meet the criteria for principal diagnosis as determined by the circumstances of admission, diagnostic work up, and/or therapy provided, and the Alphabetic Index, Tabular List, or another coding guideline does not provide sequencing direction, any one of the diagnoses may be sequenced first." "When the physician has documented what appears to be a current diagnosis in the body of the record, but has not included the diagnosis in the final diagnostic statement, the physician should be asked whether the diagnosis should be added." (Source Coding Clinic 2 QTR90. p3-4) DECLAN
== END 2025-05-13 16:32 | disposition home or self-care (01) | DRG 91 ==
LOC: ED 12:36 → EDINP 15:43 → SUATTDRO 15:43 → EDINP 17:33 → 4W 19:09